=== PATIENT | female | born 1965 | race Caucasian/White ===

== ENCOUNTER 2023-09-26 09:59 | Outpatient (RCR) | payer OTHER, SELFPAY | END 2023-09-26 23:59 | disposition home or self-care (01) | LOC: RPT 09:59 | PROVIDERS: ATTENDING PHYSICIAN Family Medicine; FAMILY PHYSICIAN Internal Medicine | DX: S29.011D Strain of muscle and tendon of front wall of thorax, subsequent encounter (principal); M54.2 Cervicalgia; Z73.6 Limitation of activities due to disability | CPT/HCPCS: 97010; 97110; 97140; 97161 ==

== ENCOUNTER 2023-10-10 17:02 | Outpatient (RCR) | payer OTHER, SELFPAY | END 2023-10-11 07:13 | disposition home or self-care (01) | LOC: RPT 17:02 | PROVIDERS: ATTENDING PHYSICIAN Family Medicine; FAMILY PHYSICIAN Internal Medicine | DX: S29.011D Strain of muscle and tendon of front wall of thorax, subsequent encounter (principal); M54.2 Cervicalgia; Z73.6 Limitation of activities due to disability | CPT/HCPCS: 97010; 97110; 97112; 97140 ==

== ENCOUNTER → 2023-10-22 10:30 | Outpatient (REF) | payer OTHER, SELFPAY | LOC: PAVMRI 10:30 | PROVIDERS: ATTENDING PHYSICIAN Family Medicine; FAMILY PHYSICIAN Internal Medicine | DX: I67.1 Cerebral aneurysm, nonruptured (principal) | CPT/HCPCS: 70544 ==

== ENCOUNTER → 2023-11-13 12:00 | Outpatient (REF) | payer OTHER, SELFPAY | LOC: DHSLP 12:00 | PROVIDERS: ATTENDING PHYSICIAN Family Medicine | DX: G47.19 Other hypersomnia (principal); R06.83 Snoring | CPT/HCPCS: 95800 ==

== ENCOUNTER → 2024-01-17 14:27 | Outpatient (REF) | payer OTHER, SELFPAY | LOC: WDC 14:27 | PROVIDERS: ATTENDING PHYSICIAN Internal Medicine | DX: Z12.39 Encounter for other screening for malignant neoplasm of breast (principal); Z13.820 Encounter for screening for osteoporosis; Z12.31 Encounter for screening mammogram for malignant neoplasm of breast | CPT/HCPCS: 77063; 77067; 77080 ==

== ENCOUNTER → 2024-10-27 10:06 | Outpatient (REF) | payer OTHER, SELFPAY | LOC: RAD 10:06 | PROVIDERS: ATTENDING PHYSICIAN Urology; FAMILY PHYSICIAN Internal Medicine | DX: N30.10 Interstitial cystitis (chronic) without hematuria (principal); M62.89 Other specified disorders of muscle; N39.42 Incontinence without sensory awareness; R31.9 Hematuria, unspecified | CPT/HCPCS: 76770; 76856 ==

== ENCOUNTER → 2024-11-06 13:46 | Outpatient (REF) | payer OTHER, SELFPAY | LOC: PAVMRI 13:46 | PROVIDERS: ATTENDING PHYSICIAN Physician Assistant Medical; FAMILY PHYSICIAN Internal Medicine | DX: M54.16 Radiculopathy, lumbar region (principal) | CPT/HCPCS: 72148 ==

== ENCOUNTER 2024-11-23 11:02 | Outpatient (RCR) | payer OTHER, SELFPAY | END 2024-11-23 23:59 | disposition home or self-care (01) | LOC: RPT 11:02 | PROVIDERS: ATTENDING PHYSICIAN Nurse Practitioner Family; FAMILY PHYSICIAN Internal Medicine | DX: M54.16 Radiculopathy, lumbar region (principal); Z73.6 Limitation of activities due to disability | CPT/HCPCS: 97010; 97110; 97112; 97162 ==

== ENCOUNTER → 2025-03-04 11:32 | Outpatient (REF) | payer OTHER, SELFPAY | LOC: WDC 11:32 | PROVIDERS: ATTENDING PHYSICIAN Nurse Practitioner Adult Health; FAMILY PHYSICIAN Internal Medicine | DX: Z12.31 Encounter for screening mammogram for malignant neoplasm of breast (principal) | CPT/HCPCS: 77063; 77067 ==